=== PATIENT | female | born 1975 | race Caucasian/White ===

== ENCOUNTER → 2017-03-07 | Outpatient (CLI) | payer OTHER ==
--- NOTE | 2017-03-09 15:08 | RADIOLOGY REPORT PS360 ---
DIG MAMM-SCREEN [place] W/CAD CAD Screening COMPARISON: Digital mammograms 12/23/2015 INDICATION: There is a history of breast cancer patient maternal grandmother diagnosed after menopause. TECHNIQUE: Standard CC and MLO images were obtained. R2 CAD reviewed. FINDINGS: Diffuse heterogenic fibroglandular densities are seen in both breast primarily upper outer quadrants. This lessens the sensitivity mammography somewhat. The findings are bilateral and symmetrical. Again is a mole marker right breast. There is no suspicious lesion in either breast and there are no suspicious microcalcifications. IMPRESSION: Stable exam no suspicious lesion seen recommend yearly follow-up BI-RADS CATEGORY: 2_Benign RECOMMENDED FOLLOWUP: 12M 12 MONTH FOLLOW-UP (A letter has been sent to the patient regarding results of the study.)
== END ==
LOC: RAD 15:07
DX: Z12.31 Encounter for screening mammogram for malignant neoplasm of breast (principal)
CPT/HCPCS: G0202